=== PATIENT | female | born 1970 | race Two or more races ===

== ENCOUNTER 2023-11-18 06:42 | Emergency (ER) | payer OTHER, SELFPAY ==
--- NOTE | ~2023-11-18 | XR_ITS ---
EXAMINATION: XR FOOT, LEFT CLINICAL INFORMATION: Edema and swelling COMPARISON: None available. TECHNIQUE: AP, lateral, and oblique views of the left foot. FINDINGS: The bones and soft tissues are normal. No fracture. Alignment is anatomic. Joint spaces are maintained. XR/XR foot LT min 3V IMPRESSION: Unremarkable left foot.
--- NOTE | ~2023-11-18 | US_ITS ---
EXAMINATION: US VENOUS ULTRASOUND WITH DOPPLER LOWER EXTREMITY, LEFT CLINICAL INFORMATION: Erythema, swelling and pain COMPARISON: None available. TECHNIQUE: Ultrasound of the deep veins is performed from the hip to the calf with compression sonography and color and pulse Doppler assessment. Spectral analysis with color-flow imaging is performed. FINDINGS: There is normal venous compression and respiratory variation and augmented flow. The visualized common femoral vein, superficial femoral vein, profunda femoral vein, popliteal vein, and the trifurcation region shows no evidence of deep venous thrombosis. There is no significant popliteal fossa cyst. If the patient's symptoms persist, followup ultrasound in 5 days 7 days might be of value to exclude proximal propagation from a non-visualized calf vein. US/US venous duplex LE IMPRESSION: No DVT demonstrated in the left lower extremity.
[2023-11-18 07:09] VITALS: BP 142/67; PULSE 85; RESP 16; TEMP 37.1; O2SAT 98; BMI 21.9
[2023-11-18 07:34] LABS: MANUAL DIFF FLAG NO
[2023-11-18 07:48] LABS: Basophils Percent Auto 0.4 % (0-2); Eosinophils Absolute Auto 0.1 X10*3/uL (0.0-0.4); Eosinophils Percent Auto 1.6 % (0-4); Hematocrit 32.3 % (37.0-47.0); Hemoglobin 10.4 g/dl (12.0-16.0); Imm Gran Abs Auto 0.02 X10*3/uL (0.00-0.03); Imm Gran Pct Auto 0.3 % (0.0-0.4); Lymphocytes Percent Auto 29.3 % (20-40); Mean Corpuscular HGB Conc 32.2 g/dl (31.0-35.0); Mean Corpuscular Hemoglobin 27.7 pg (27.0-33.0); Mean Corpuscular Volume 85.9 fL (80.0-98.0); Mean Platelet Volume 8.9 fL (9.4-12.3); Monocytes Absolute Auto 0.8 X10*3/uL (0.1-1.2); Monocytes Percent Auto 11.7 % (2-11); Neutrophils Absolute Auto 3.8 x10*3/uL (2.0-8.3); Neutrophils Percent Auto 56.7 % (45-73); Platelet Count 376 X10*3/uL (160-400); Red Blood Count 3.76 X10*6/uL (4.20-5.50); Red Cell Distribution Width 14.4 % (11.0-16.0); White Blood Count 6.8 X10*3/uL (4.8-10.8)
[2023-11-18 07:49] LABS: Alanine Aminotransferase 30 U/L (0-31); Albumin Level 3.8 g/dL (3.5-5.0); Alkaline Phosphatase 91 U/L (39-117); Anion Gap 15 (12-20); Aspartate Amino Transferase 26 U/L (5-31); Bilirubin Total 0.5 mg/dL (0.0-1.0); Blood Urea Nitrogen 18 mg/dL (9-16); Calcium 9.2 mg/dL (8.4-10.2); Carbon Dioxide 25 mmol/L (22-29); Chloride 102 mmol/L (96-108); Creatinine Clr Calc Pharmacy 80.3; Estimated Glomerular Filt Rate > 60; Glucose Random 111 mg/dL (60-115); Potassium 3.6 mmol/L (3.3-5.1); Sodium 138 mmol/L (135-145); Total Protein 7.7 g/dL (6.5-8.0)
[2023-11-18 07:54] LABS: B Type Natriuretic Peptide 15 pg/mL (<100)
--- NOTE | 2023-11-18 08:07 | ED.GENADULT ---
HPI - General Adult General Chief complaint: Extremity Problem Stated complaint: swollen foot Time Seen by Provider: 11/18/23 07:49 Source: patient Mode of arrival: ambulatory Limitations: no limitations History of Present Illness HPI narrative: Patient is a 53-year-old female presenting to the emergency department with complaint of left foot pain and swelling which she noted yesterday at work. States pain, swelling and redness has increased since. Denies history of same in the past. Denies known injury/trauma. Denies history of heart failure or DM. Denies calf pain or swelling. MD complaint: left foot pain and swelling Onset (ago): day(s) Location: left and lower extremity Severity: severe Quality: aching Pain Consistency: constant Relieving factors: rest Exacerbating factors: movement Treatments prior to arrival: other (compression socks) Related Data Previous Rx's Medication Instructions Recorded cephalexin 500 mg capsule 500 mg PO QID 7 days #28 caps 11/18/23 doxycycline hyclate 100 mg capsule 100 mg PO BID #14 caps 11/18/23 Allergies Allergy/AdvReac Type Severity Reaction Status Date / Time acetaminophen [From PERCOCET] Allergy Unknown SWELLING Verified 11/18/23 07:13 aspirin [ASPIRIN] Allergy Unknown SHORTNESS Verified 11/18/23 07:13 OF BREATH tramadol [TRAMADOL] Allergy Unknown HIVES Verified 11/18/23 07:13 Review of Systems Review of Systems: As per HPI. Yes all other systems are reviewed and are negative Constitutional: Constitutional: Reports as per HPI [facility] Social History Social History Advance Directives: No Physical Exam ED Vital Signs: Vital Signs - 24 hr 11/18/23 07:09 11/18/23 09:13 Temperature 98.8 F 97.8 F Pulse Rate 85 75 Respiratory Rate 16 20 Blood Pressure 142/67 H 113/62 Pulse Oximetry 98 97 Oxygen Delivery Method Room Air Room Air BMI result Body Mass Index 21.9 Vital signs have been reviewed and appear to be correct. Blood pressure normal. Heart rate normal. Respiratory rate normal. Temperature normal. Oxygen saturation normal. Const General: cooperative, healthy appearing and no acute distress Orientation/consciousness: oriented to person, oriented to place, oriented to time and patient oriented x3 Limitations: no limitations HENMT Head: Yes normocephalic and Yes atraumatic Ears: external ears normal General nose exam: Normal external nose present Face and sinus: Yes face symmetric Mouth: oropharynx normal and moist mucous membranes Throat: Yes uvula midline Eyes Pupils: Equal, round and reactive pupils present Neck Neck: Yes normal visual inspection and Yes supple Resp Effort & Inspection: normal respiratory effort and able to speak in complete sentences Auscultation: clear to auscultation bilaterally Cardio Rate: regular rate Rhythm: regular rhythm Heart sounds: S1 normal heart sound present and S2 normal heart sound present GI Palpation (GI): Soft to palpation and nontender Auscultation: normoactive bowel sounds General: Yes no CVA tenderness Back/Spine/Pelvis Back: no CVA tenderness Skin General skin exam: elasticity normal and turgor normal Neuro General: oriented to person, oriented to place, oriented to time, patient oriented x3, moves all extremities, no focal motor deficits and CN's II-XI intact bilaterally Cranial nerves: Yes Equal, round and reactive pupils present Cognition (Neuro): normal cognition Extrem General: Yes full ROM, Yes no pedal edema and Yes no calf tenderness Left lower extremity: lower leg (negative Homans) Details: normal to inspection and no edema; no tenderness, no palpable cords and no unusual warmth, ankle Details: tenderness Location: other (diffuse), pitting edema Details: pitting and 1+, warmth and other (erythema) and foot Details: normal capillary refill, tenderness Location: of the dorsal foot, toes with normal ROM, warmth Location: diffusely, edema Location: of the dorsal foot and vascular exam Details: dorsalis pedis pulse present and posterior tibial pulse present; no abrasions, no lacerations and no puncture wound Psych Mental Status: mental status grossly normal Affect: normal affect Thought process: Normal thought process present Medications Administered Discontinued Medications Generic Name Dose Route Start Last Admin Trade Name Freq PRN Reason Stop Dose Admin Ketorolac Tromethamine 30 mg 11/18/23 09:38 11/18/23 10:02 Ketorolac Tromethamine 30 Mg/Ml Vial IM 11/18/23 09:39 30 mg ONCE ONE Administration Medical Decision Making Medical Decision Making [facility] [place] Narrative: Patient is a 53-year-old female presenting to the emergency department with complaint of left foot pain and swelling which she noted yesterday at work. On exam patient is awake, A+Ox3, VS WNL, afebrile, normal neurological exam without focal deficits, physical exam findings as above. Given reported symptoms and physical exam findings, initial differential includes cellulitis, dependent edema, DVT. Labs notable for no leukocytosis, mild anemia, no significant electrolyte abnormalities. X-ray notable for no evidence of osteomyelitis. Ultrasound is negative for DVT. My interpretation is in agreement with the radiologist's interpretation. Will treat patient for cellulitis with doxycycline and cephalexin. Instructed patient to keep foot elevated when at rest. Instructed patient to follow-up with primary care provider. Strict return precautions discussed at bedside, and patient advised to monitor leg several times daily for changes. Patient verbalized understanding of and agreement with plan. Differential Diagnosis Differential Diagnoses: The differential diagnosis associated with the presentation includes As per [facility] Admission/Observation Consideration of admission/observation: Escalation of care including admission/observation considered Patient would have been admitted to the hospital had her work up had any findings where hospital admission was appropriate and her clinical presentation warranted hospital admission. Lab Data [facility] [place] Lab Attestation statement: I reviewed the patient's lab results. As per [facility] 11/18/23 07:29 11/18/23 07:29 Labs: Lab Results 11/18/23 Range/Units 07:29 WBC 6.8 (4.8-10.8) X10*3/uL RBC 3.76 L (4.20-5.50) X10*6/uL Hgb 10.4 L (12.0-16.0) g/dl Hct 32.3 L (37.0-47.0) % MCV 85.9 (80.0-98.0) fL MCH 27.7 (27.0-33.0) pg MCHC 32.2 (31.0-35.0) g/dl RDW 14.4 (11.0-16.0) % Plt Count 376 (160-400) X10*3/uL MPV 8.9 L (9.4-12.3) fL Immature Gran % (Auto) 0.3 (0.0-0.4) % Neut % (Auto) 56.7 (45-73) % Lymph % (Auto) 29.3 (20-40) % Boyle % (Auto) 11.7 H (2-11) % Eos % (Auto) 1.6 (0-4) % Baso % (Auto) 0.4 (0-2) % Lymph # (Auto) 2.0 (1.2-4.9) X10*3/uL Boyle # (Auto) 0.8 (0.1-1.2) X10*3/uL Eos # (Auto) 0.1 (0.0-0.4) X10*3/uL Baso # (Auto) 0.0 (0.0-0.2) X10*3/uL Abs Immat Gran (auto) 0.02 (0.00-0.03) X10*3/uL Absolute Neuts (auto) 3.8 (2.0-8.3) x10*3/uL Absolute Nucleated RBC 0.000 (0.0-0.012) X10*3/uL Nucleated RBC % (auto) 0.0 (0.0-0.2) /100WBC Sodium 138 (135-145) mmol/L Potassium 3.6 (3.3-5.1) mmol/L Chloride 102 (96-108) mmol/L Carbon Dioxide 25 (22-29) mmol/L Anion Gap 15 (12-20) BUN 18 H (9-16) mg/dL Creatinine 0.64 (0.5-1.4) mg/dL Estim Creat Clear Calc 80.3 Estimated GFR > 60 Random Glucose 111 (60-115) mg/dL Calcium 9.2 (8.4-10.2) mg/dL Total Bilirubin 0.5 (0.0-1.0) mg/dL AST 26 (5-31) U/L ALT 30 (0-31) U/L Alkaline Phosphatase 91 (39-117) U/L B-Natriuretic Peptide 15 (<100) pg/mL Total Protein 7.7 (6.5-8.0) g/dL Albumin 3.8 (3.5-5.0) g/dL Independent Interpretation I performed an independent interpretation of an: Plain X-Ray and Ultrasound Interpretation: No evidence of osteomyelitis on x-ray No evidence of DVT on ultrasound Radiology Impression Discussion of test interpretation with radiology: I have reviewed the radiologist's reading. Radiologist Impression: XR/XR foot LT min 3V IMPRESSION: Unremarkable left foot. US/US venous duplex LE LT IMPRESSION: No DVT demonstrated in the left lower extremity. External Record Review External record reviewed: Inpatient record, Office record and Outpatient record Prescription Management I considered prescription management with: Antibiotic Discharge Plan Discharge Clinical Impression: Cellulitis Qualifiers: Site of cellulitis of extremity: lower extremity Laterality: left Patient Disposition: Home, Self-Care Instructions: Cephalexin (By mouth), Doxycycline (By mouth), Cellulitis (DC) Additional Instructions: You have been evaluated in the emergency department today for skin infection, also known as cellulitis. If the area of inflammation was outlined today in the ER, please return to the ER immediately if the area of redness increases beyond the border. Please take your prescribed antibiotics as directed for the full course of the medication. You can use Tylenol or ibuprofen per package instructions every 6 hours as needed for pain. If necessary, you can alternate these medications so that you can take one medication every 3 hours. For instance, at noon take ibuprofen, then at 3:00 p.m. take Tylenol, then at 6:00 p.m. take ibuprofen. Please schedule an appointment for follow-up with your primary care physician as soon as possible. Return to the emergency department if you experience recurrent vomiting, fevers greater than 100.4? F, increasing area of redness, warmth around the area, foul-smelling discharge from the area, increased tenderness around the area, or any other concerning symptoms. Prescriptions: New doxycycline hyclate 100 mg capsule 100 mg PO BID Qty: 14 0RF cephalexin 500 mg capsule 500 mg PO QID 7 Days Qty: 28 0RF
[2023-11-18 09:13] VITALS: BP 113/62; PULSE 75; RESP 20; TEMP 36.6; O2SAT 97
[2023-11-18] MEDS: Ketorolac Tromethamine 30 MG/ML VIAL IM (10:02)
[2023-11-18 11:12] VITALS: BP 124/72; PULSE 78; RESP 18; O2SAT 98
== END 2023-11-18 11:16 | disposition home or self-care (01) ==
PROVIDERS: Emergency Provider Emergency Medicine Emergency Medical Services; PCP Internal Medicine
DX: R60.0 Localized edema (principal); M79.672 Pain in left foot; Z79.899 Other long term (current) drug therapy
CPT/HCPCS: 36415; 73630; 80053; 83880; 85025; 93971; 96372; 99284; J1885

== ENCOUNTER 2023-11-23 14:27 | Inpatient (IN) | payer OTHER, SELFPAY ==
[2023-11-23 15:45] VITALS: BP 135/80; PULSE 70; RESP 18; TEMP 36.7; O2SAT 97; BMI 21.9
--- NOTE | 2023-11-23 15:46 | ED_ITS ---
HPI - General Adult General Chief complaint: Extremity Injury, Lower Stated complaint: l leg infection Time Seen by Provider: 11/24/23 01:03 Source: patient Mode of arrival: ambulatory Limitations: no limitations History of Present Illness HPI narrative: Patient with history of IV drug use with right forearm deep abscesses status post I and few weeks ago on oral doxy and Keflex for left leg cellulitis started on 11/17 comes here as still feeling warmth in the left ankle area with pain low-grade fever of 101 at home was seen at [facility] yesterday wanted to get admitted but patient refused to get admitted there and comes here Related Data Previous Rx's Medication Instructions Recorded cephalexin 500 mg capsule 500 mg PO QID 7 days #28 caps 11/18/23 doxycycline hyclate 100 mg capsule 100 mg PO BID #14 caps 11/18/23 Allergies Allergy/AdvReac Type Severity Reaction Status Date / Time acetaminophen [From PERCOCET] Allergy Unknown SWELLING Verified 11/23/23 15:45 aspirin [ASPIRIN] Allergy Unknown SHORTNESS Verified 11/23/23 15:45 OF BREATH tramadol [TRAMADOL] Allergy Unknown HIVES Verified 11/23/23 15:45 Review of Systems 2 Review of Systems: Yes all other systems are reviewed and are negative PMFSH Past Medical History Medical History IVDU (intravenous drug user) Social History Social History Advance Directives: No Advance Directives Information Provided: Yes Physical Exam ED Vital Signs: Vital Signs - 24 hr 11/23/23 15:45 11/23/23 19:00 11/23/23 23:57 Temperature 98.0 F 97.5 F 98.0 F Pulse Rate 70 65 71 Respiratory Rate 18 18 17 Blood Pressure 135/80 147/80 H 133/56 L Pulse Oximetry 97 99 98 Oxygen Delivery Method Room Air Room Air Room Air 11/24/23 00:55 Temperature 97.6 F Pulse Rate 70 Respiratory Rate 16 Blood Pressure 133/56 L Pulse Oximetry 97 Oxygen Delivery Method Room Air BMI result Body Mass Index 21.9 Appearance: Alert. Oriented X3. No acute distress. Eyes: PERRLA, No Nystagmus ENT: Pharynx normal. Oral Mucosa moist Neck: Normal inspection. Neck supple. CVS: Normal heart rate and rhythm. Pulses normal. Respiratory: No respiratory distress. Equal air entry bilateral, no wheezing/rales/rhonchi Abdomen: Soft and nontender. Bowel sounds are present, no mass palpable, no CVA tenderness Skin: Skin warm and dry. Normal skin color. Normal skin turgor. Extremities: No lower extremity edema. No calf tenderness healing I and D wound on the right forearm, left ankle area warmth tender with erythema good range of movement of the ankle joint. Left inguinal lymph node+ Neuro: Oriented X 3. No motor deficit. No sensory deficit.No cerebellar signs , cranial nerves II-XII intact Course Course Course Narrative: RME performed by Savanah De PA-C. Patient is a 53 year old assigned female at presenting to the emergency department with left leg cellulitis. Patient was seen and diagnosed with cellulitis, is on 4 antibiotics, and the infection is worsening. [facility] against medical advice because she states she'd [place] be admitted here, [place] [facility] Detailed physical exam and review of systems are deferred to the mobility architect. Labs ordered. Patient placed back in the waiting room pending room availability and results. Medical Decision Making Medical Decision Making [facility] Narrative: Patient with left leg cellulitis with history of IVDA use with deeper abscess status post I and D on the right forearm failed outpatient antibiotic treatment will admit patient for IV vancomycin pending cultures in the lab case discussed with hospitalist will admit the patient Differential Diagnosis Differential Diagnoses: The differential diagnosis associated with the presentation includes Cellulitis/arthritis Admission/Observation Consideration of admission/observation: Escalation of care including admission/observation considered Consult Healthcare Provider Management of the patient was discussed with: Hospitalist Lab Data [facility] Lab Attestation statement: I reviewed the patient's lab results. 11/24/23 01:38 11/24/23 01:38 Labs: Lab Results 11/24/23 Range/Units 01:38 WBC 4.8 (4.8-10.8) X10*3/uL RBC 3.60 L (4.20-5.50) X10*6/uL Hgb 10.0 L (12.0-16.0) g/dl Hct 31.2 L (37.0-47.0) % MCV 86.7 (80.0-98.0) fL MCH 27.8 (27.0-33.0) pg MCHC 32.1 (31.0-35.0) g/dl RDW 13.9 (11.0-16.0) % Plt Count 481 H D (160-400) X10*3/uL MPV 8.6 L (9.4-12.3) fL Immature Gran % (Auto) 0.2 (0.0-0.4) % Neut % (Auto) 26.5 L (45-73) % Lymph % (Auto) 56.0 H (20-40) % Taney % (Auto) 12.4 H (2-11) % Eos % (Auto) 4.1 H (0-4) % Baso % (Auto) 0.8 (0-2) % Lymph # (Auto) 2.7 (1.2-4.9) X10*3/uL Taney # (Auto) 0.6 (0.1-1.2) X10*3/uL Eos # (Auto) 0.2 (0.0-0.4) X10*3/uL Baso # (Auto) 0.0 (0.0-0.2) X10*3/uL Abs Immat Gran (auto) 0.01 (0.00-0.03) X10*3/uL Absolute Neuts (auto) 1.3 L (2.0-8.3) x10*3/uL Absolute Nucleated RBC 0.000 (0.0-0.012) X10*3/uL Nucleated RBC % (auto) 0.0 (0.0-0.2) /100WBC Sodium 140 (135-145) mmol/L Potassium 3.8 (3.3-5.1) mmol/L Chloride 104 (96-108) mmol/L Carbon Dioxide 26 (22-29) mmol/L Anion Gap 14 (12-20) BUN 12 (9-16) mg/dL Creatinine 0.64 (0.5-1.4) mg/dL Estim Creat Clear Calc 80.3 Estimated GFR > 60 Random Glucose 90 (60-115) mg/dL Lactic Acid 0.7 (0.5-2.0) mmol/L Calcium 8.7 (8.4-10.2) mg/dL Magnesium 1.8 (1.6-2.6) mg/dL Total Bilirubin 0.3 (0.0-1.0) mg/dL AST 27 (5-31) U/L ALT 26 (0-31) U/L Alkaline Phosphatase 105 (39-117) U/L C-Reactive Protein 0.16 (< or = 0.50) mg/dL Total Protein 6.9 (6.5-8.0) g/dL Albumin 3.5 (3.5-5.0) g/dL Discharge Plan Discharge Clinical Impression: Cellulitis Patient Disposition: Admitted As Inpatient
--- NOTE | 2023-11-23 16:10 | MHC.EDTECH ---
This tech called patient for lab work. No answer at this time
[2023-11-23 19:00] VITALS: BP 147/80; PULSE 65; RESP 18; TEMP 36.4; O2SAT 99
--- NOTE | 2023-11-23 19:01 | MHC.EDTECH ---
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
--- NOTE | 2023-11-23 20:22 | MHC.EDTECH ---
PATIENT IS REQUESTING AN ULTRASOUND GUIDED NEEDLE TO DRAW HER LABS ,RN AWARE
[2023-11-23 23:57] VITALS: BP 133/56; PULSE 71; RESP 17; TEMP 36.7; O2SAT 98
[2023-11-24 00:55] VITALS: BP 133/56; PULSE 70; RESP 16; TEMP 36.4; O2SAT 97
--- NOTE | 2023-11-24 01:41 | PC.NURSE ---
IV placed left EJ 20g by MD Oliva
[2023-11-24 01:42] VITALS: BP 133/56; PULSE 70; RESP 16; TEMP 36.4; O2SAT 97
[2023-11-24 01:43] LABS: MANUAL DIFF FLAG NO
--- NOTE | 2023-11-24 01:45 | P.HPHOSP_ITS ---
History of Present Illness Date of Service: 11/24/23 Attending physician on admission: Marissa Ray Chief Complaint: Left leg swelling Ary Schreiber is a 53 years old woman with past medical history significant for IVDU presents to the emergency department complaining of left leg swelling associated with pain and redness. She did not report fevers or chills. She recently had a drainage (fasciotomy?) to her left forearm. She says she has an abscess. This was performed on [facility] a few weeks ago. She was recently seen in this emergency department for left leg cellulitis and was prescribed course of 2 antibiotics: Ceftriaxone and doxycycline (November 18, 2023). She said that the last time she used IV drugs was about a month ago. In the ED, she was found to have stable vital signs. Blood workup showed no leukocytosis. There are no electrolyte imbalances. LFTs are normal. CRP and lactic acid abnormal ED tx: NS 1 L bolus, vancomycin 1 g IV. Review of Systems 2 Review of Systems: Yes all other systems are reviewed and are negative PMFSH Medical History IVDU (intravenous drug user) Social History Advance Directives: No Advance Directives Information Provided: Yes Meds Allergies Allergy/AdvReac Type Severity Reaction Status Date / Time acetaminophen [From PERCOCET] Allergy Unknown SWELLING Verified 11/23/23 15:45 aspirin [ASPIRIN] Allergy Unknown SHORTNESS Verified 11/23/23 15:45 OF BREATH tramadol [TRAMADOL] Allergy Unknown HIVES Verified 11/23/23 15:45 Active Medications: Current Medications Acetaminophen (Acetaminophen 325 Mg Tablet) 650 mg PO Q6H PRN PRN Reason: Pain, Mild (Pain Scale 1-3) Enoxaparin Sodium (Enoxaparin Sodium 40 Mg/0.4 Ml Syringe) 40 mg SUBCUT Q24H BRITTA Sodium Chloride (Ns) 1,000 mls @ 999 mls/hr IV .Q1H1M ONE Stop: 11/24/23 02:41 Vancomycin HCl 1,000 mg/ (Sodium Chloride) 270 mls @ 270 mls/hr IV ONCE ONE Stop: 11/24/23 02:40 Pharmacy Consult (Consult Rx Vancomycin Dosing) 1 each MISCELLANE DAILY PRN PRN Reason: Consult order Sodium Chloride (0.9 % Sodium Chloride Flush 3 Ml Syringe) 3 ml IVFLUSH QSHIFT [facility] Physical Exam 2 Vital Signs and Narrative: Vital Signs: Last Vital Signs Temp 97.6 F 11/24/23 00:55 Pulse 70 11/24/23 00:55 Resp 16 11/24/23 00:55 BP 133/56 L 11/24/23 00:55 Pulse Ox 97 11/24/23 00:55 O2 Del Method Room Air 11/24/23 00:55 BMI result Body Mass Index 21.9 Constitutional - Awake and Alert, No apparent distress. HEENT - Pupils equally round. Normal sclera. Heart - S1S2, RRR, No edema Lungs - Normal lung expansion, Normal respiratory effort, No respiratory distress, CTA bilaterally Gastrointestinal - NT / ND; +BS; No rebound or guarding Extremities - Left forearm (large wound with dark tissue), no discharges. Please see ED notes for picture. Left lower extremity: Erythema, edema and tenderness involving the lower 3rd of the leg, left ankle and foot. Musculoskeletal - Normal ROM Skin - Warm/Dry Neurological - Alert & oriented x3. No focal weakness grossly noted. Normal speech. Psychological - Appropriate affect Results Labs 11/24/23 01:38 11/24/23 01:38 Assessment and Plan (1) Left leg cellulitis: Status: Acute (2) IVDU (intravenous drug user): Status: Acute (3) Open wound of right forearm: Qualifiers: Encounter type: initial encounter Qualified Code(s): S51.801A - Unspecified open wound of right forearm, initial encounter Status: Acute Plan Ary Schreiber is a 53 years old woman with past medical history significant for IVDU admitted with: * Left lower extremity cellulitis (possible hematogenous from recent right forearm abscess). Failed outpatient antibiotic therapy. Left lower extremity venous US (11/24/23) showed no DVT. Admit to hospitalist service. Continue treatment with vancomycin IV. Check blood cultures. * Recent right forearm wound s/p abscess drainage (?fasciotomy). Low suspicion for underlying osteomyelitis. CRP is normal. Wound care consult. DVT prophylaxis: Lovenox subcut Code status: Full Patient will need hospitalization for at least 2 midnights for IV antibiotic therapy for left lower leg cellulitis as she failed oral antibiotic therapy. Quality Stroke Does the patient have a stroke diagnosis?: No VTE Prior VTE?: No VTE Risk Level:: Medical - moderate - high VTE Device Contraindication: Treatment Not Indicated VTE Drug Contraindication: N/A - Med Ordered
[2023-11-24 01:46] LABS: Basophils Percent Auto 0.8 % (0-2); Eosinophils Absolute Auto 0.2 X10*3/uL (0.0-0.4); Eosinophils Percent Auto 4.1 % (0-4); Hematocrit 31.2 % (37.0-47.0); Imm Gran Abs Auto 0.01 X10*3/uL (0.00-0.03); Imm Gran Pct Auto 0.2 % (0.0-0.4); Lymphocytes Absolute Auto 2.7 X10*3/uL (1.2-4.9); Mean Corpuscular HGB Conc 32.1 g/dl (31.0-35.0); Mean Corpuscular Hemoglobin 27.8 pg (27.0-33.0); Mean Corpuscular Volume 86.7 fL (80.0-98.0); Mean Platelet Volume 8.6 fL (9.4-12.3); Monocytes Absolute Auto 0.6 X10*3/uL (0.1-1.2); Monocytes Percent Auto 12.4 % (2-11); Neutrophils Absolute Auto 1.3 x10*3/uL (2.0-8.3); Neutrophils Percent Auto 26.5 % (45-73); Platelet Count 481 X10*3/uL (160-400); Red Cell Distribution Width 13.9 % (11.0-16.0); White Blood Count 4.8 X10*3/uL (4.8-10.8)
[2023-11-24 01:56] LABS: Lactic Acid 0.7 mmol/L (0.5-2.0)
[2023-11-24 02:05] LABS: Alanine Aminotransferase 26 U/L (0-31); Albumin Level 3.5 g/dL (3.5-5.0); Alkaline Phosphatase 105 U/L (39-117); Anion Gap 14 (12-20); Aspartate Amino Transferase 27 U/L (5-31); Bilirubin Total 0.3 mg/dL (0.0-1.0); Blood Urea Nitrogen 12 mg/dL (9-16); C Reactive Protein 0.16 mg/dL (< or = 0.50); Calcium 8.7 mg/dL (8.4-10.2); Carbon Dioxide 26 mmol/L (22-29); Chloride 104 mmol/L (96-108); Creatinine Clr Calc Pharmacy 80.3; Estimated Glomerular Filt Rate > 60; Glucose Random 90 mg/dL (60-115); Magnesium 1.8 mg/dL (1.6-2.6); Potassium 3.8 mmol/L (3.3-5.1); Sodium 140 mmol/L (135-145); Total Protein 6.9 g/dL (6.5-8.0)
[2023-11-24] MEDS: 0.9 % Sodium Chloride 1,000 ML 999 ML IV (02:05)
[2023-11-24] MEDS: vancomycin HCL 1,250 MG in 0.9 % Sodium Chloride 250 ML 166.67 MG IV (02:06)
[2023-11-24] MEDS: ondansetron HCL 4 MG/2 ML VIAL IVPUSH (02:07)
[2023-11-24] MEDS: Morphine Sulfate 4 MG/ML CARTRIDGE IVPUSH (02:10)
[2023-11-24 02:17] LABS: Erythrocyte Sedimentation Rate 29 MM/HR (0-20)
[2023-11-24] MEDS: 0.9 % Sodium Chloride 1,000 ML 100 ML IVCONT ×3 (03:28→23:44)
[2023-11-24 07:26] VITALS: BP 106/64; PULSE 64; RESP 18; O2SAT 96
--- NOTE | 2023-11-24 07:30 | PC.NURSE ---
pt is alert and oriented, skin appropriate for ethnicity, respirations even and unlabored, pt's left foot/leg area slightly swollen/discorded/reddish/ pain 05/17, right arm bandaged up, pt does have a left external jugular and running well, vs stable
[2023-11-24] MEDS: HYDROmorphone HCl 0.5 MG/0.5 ML SYRINGE IVPUSH ×4 (07:34→22:31)
--- NOTE | 2023-11-24 09:10 | PHA.MEDREC ---
Pharmacy Consult ? Medication Reconciliation Pharmacy has completed the medication reconciliation.
[2023-11-24] MEDS: Enoxaparin Sodium 40 MG/0.4 ML SYRINGE SUBCUT (09:38)
--- NOTE | 2023-11-24 12:25 | MHC.CM.PN ---
Addendum entered by Inocencia Penny 11/25/23 09:43: PT REPORTS SHE LIVES ALONE AND IS INDEPENDENT WITH [employer] SHE DENIES USE OF DME OR HOME SERVICES PT DECLINES TO COMPLETE A HCP SHE DOES NOT KNOW THE NAME OF HER PCP DCP: HOME VIA SHUTTLE VS LYFT Original Note: CM ATTEMPTED TO SEE PT WHO WAS SLEEPING ON APPROACH AND DID NOT RESPOND TO SEVERAL ATTEMPTS TO WAKE HER. CM WILL RETURN
--- NOTE | 2023-11-24 12:48 | PC.NURSE ---
Patient has been sleeping since I got here. Asked security to check her belongings because of her known iv drug use. tigered Berta Baldwin found crack pipes and many bags of drugs that were confiscated by security.
--- NOTE | 2023-11-24 14:00 | HO.WOUND ---
Wound Consult: Initial 53yr old?[place] [facility] [place] - See progress notes and H&P for detailed history.? Wound consult placed for Right Forearm wound POA.? Patient was not agreeable to assessment and photo documentation.? She became irritated and irrationally upset while discussing the right forearm wound - she began to curse at me. I clarified she would like to refuse my service and she expressed her desire to not have me assess her wound with foul language. Consult completed - please re-consult inpatient wound nurse if patient becomes agreeable to assessment.
[2023-11-24 15:33] VITALS: BP 145/76; PULSE 69; RESP 19; TEMP 36.4; O2SAT 98
[2023-11-24 15:54] LABS: Appearance Urine Clear; Color Urine Yellow; Glucose Urine UA Negative (Negative); Leukocyte Esterase Urine Negative (Negative); Nitrite Urine Negative (Negative); PH 5.5 (5.0-9.0); Urine Blood Negative (Negative); Urine Ketones Negative (Negative); Urine Protein Negative (Neg-Trace)
[2023-11-24] MEDS: methADONE HCl 20 MG/2 ML ORAL.CONC 30 MG PO (16:40)
--- NOTE | 2023-11-24 17:11 | PM.EVENT ---
Event Note Date of Service: 11/24/23 Event Note: Patient seen examined by hospitalist team this morning, seen and examined again. c/o:left leg swelling associated with pain and redness. Physical exam: Similar to H&P, she refuses to get examined her left arm. Assessment plan: 53 years old woman with past medical history significant for IVDU admitted with: Left lower extremity cellulitis (possible hematogenous from recent right forearm abscess). Failed outpatient antibiotic therapy. Left lower extremity venous US (11/24/23) showed no DVT. plan: Continue treatment with vancomycin IV. Check blood cultures. id EVAL IVDU hx : addiction cinsult -added metadone. Recent right forearm wound s/p abscess drainage (?fasciotomy). Low suspicion for underlying osteomyelitis. CRP is normal. currently refuses exam even with Wound care consult Time Spent With Patient Time: Total time managing care of this patient today ____ minutes.
[2023-11-24] MEDS: vancomycin HCL 1,000 MG in 0.9 % Sodium Chloride 250 ML 270 MG IV (18:30)
--- NOTE | 2023-11-24 18:47 | PHA.PROG ---
Admission Date/Time: November 24, 2023 01:42 Indication: Cellulitis, w/ hx IVDU Weight in k.431 kg Adjusted body weight in K.8 kg [place] body weight in K.56 kg Obesity Dosing Indication % IBW: 134% Serum Creatinine - Last 168 Hours 11/24/23 01:38 Creatinine 0.64 Estimated CrCl and GFR - Last 168 Hours 11/24/23 01:38 Estim Creat Clear Calc 80.3 Estimated GFR > 60 Vancomycin Loading Dose: 1250 mg Current Vancomycin Dosing Regimen: 1000 mg Q12H Date and Time for next Vancomycin Level to be drawn: 11/24 @ 1600 Pharmacist Comments on Vancomycin Plan: Patient received an adequate load dose in the ER 11/23 @ 0206 Maintenance dose vancomycin 1000 mg Q12H is scheduled to start 11/23 @ 1800. Predicted AUC 567 with a trough of 16.9. Level will be drawn prior to 4th dose Pharmacy will monitor renal function daily. Jazmyn Oleary PharmD Vancomycin dosing will take advantage of [employer] as a clinical decision support tool that uses Bayesian modeling to calculate individual patient's pharmacokinetic parameters and forecast the patient's drug concentration time course with the target goal AUC 24 range of 400 - 600 mg/L/hr.
--- NOTE | 2023-11-24 20:54 | HO.ADDICT_ITS ---
History of Present Illness Date of Service: 11/24/23 Chief Complaint: Left lower extremity cellulitis Reason for Consult: OUD/withdrawal Sources of Information: patient interviewed and chart reviewed HPI Narrative: Patient is a 53 year old female currently medically admitted with cellulitis to her leg. She was seen by women nurse earlier in the day and initially denied any current substance use, but did acknowledge history of use--reported it had been one month since last use Later in the day reported to RN withdrawal sx from opiates. Seen by this machine sign writer and women nurse in ED bed 16. Patient laying in bed, eyes closed, but answering questions. Somewhat restless, frequently moving arms and legs. Reporting feeling hot and cold, body aches, and stomach cramps. Reports using a bundle daily. Has been on methadone in the past. Would like to have withdrawal addressed. Review of Systems Constitutional: Reports as per HPI Diagnostics Vital Signs (24Hr): Vital Signs - 24 hr 11/23/23 23:57 11/24/23 00:55 11/24/23 01:42 Temperature 98.0 F 97.6 F 97.6 F Pulse Rate 71 70 70 Respiratory Rate 17 16 16 Blood Pressure 133/56 L 133/56 L 133/56 L Pulse Oximetry 98 97 97 Oxygen Delivery Method Room Air Room Air Room Air 11/24/23 07:26 11/24/23 15:33 Temperature 97.6 F Pulse Rate 64 69 Respiratory Rate 18 19 Blood Pressure 106/64 145/76 H Pulse Oximetry 96 98 Oxygen Delivery Method Room Air Room Air BMI result Body Mass Index 21.9 Labs 11/24/23 01:38 11/24/23 01:38 Labs: Laboratory Results - last 48 hr 11/24/23 11/24/23 01:38 15:45 WBC 4.8 RBC 3.60 L Hgb 10.0 L Hct 31.2 L MCV 86.7 MCH 27.8 MCHC 32.1 RDW 13.9 Plt Count 481 H D MPV 8.6 L Immature Gran % (Auto) 0.2 Neut % (Auto) 26.5 L Lymph % (Auto) 56.0 H [place] % (Auto) 12.4 H Eos % (Auto) 4.1 H Baso % (Auto) 0.8 Lymph # (Auto) 2.7 [place] # (Auto) 0.6 Eos # (Auto) 0.2 Baso # (Auto) 0.0 Abs Immat Gran (auto) 0.01 Absolute Neuts (auto) 1.3 L Absolute Nucleated RBC 0.000 Nucleated RBC % (auto) 0.0 ESR 29 H Sodium 140 Potassium 3.8 Chloride 104 Carbon Dioxide 26 Anion Gap 14 BUN 12 Creatinine 0.64 Estim Creat Clear Calc 80.3 Estimated GFR > 60 Random Glucose 90 Lactic Acid 0.7 Calcium 8.7 Magnesium 1.8 Total Bilirubin 0.3 AST 27 ALT 26 Alkaline Phosphatase 105 C-Reactive Protein 0.16 Total Protein 6.9 Albumin 3.5 Urine Color Yellow Urine Appearance Clear Urine pH 5.5 Ur Specific [place] 1.020 Urine Protein Negative Urine Glucose (UA) Negative Urine Ketones Negative Urine Blood Negative Urine Nitrite Negative Ur Leukocyte Esterase Negative Mental Status Exam Mental Status Exam Patient Appearance: Disheveled Level of Consciousness: Awake, Appropriate and Restless Patient Behavior: Appropriate Medications Medications Current Medications Acetaminophen (Acetaminophen 325 Mg Tablet) 650 mg PO Q6H PRN PRN Reason: Pain, Mild (Pain Scale 1-3) Enoxaparin Sodium (Enoxaparin Sodium 40 Mg/0.4 Ml Syringe) 40 mg SUBCUT Q24H [facility] Last Admin: 11/24/23 09:38 Dose: 40 mg Hydromorphone HCl (Hydromorphone Hcl 0.5 Mg/0.5 Ml Syringe) 0.5 mg IVPUSH Q4H PRN; Protocol PRN Reason: Pain, Severe (Pain Scale 7-10) Last Admin: 11/24/23 18:27 Dose: 0.5 mg Sodium Chloride (Ns) 1,000 mls @ 100 mls/hr IVCONT .Q10H [facility] Stop: 11/25/23 01:59 Last Admin: 11/24/23 14:37 Dose: 100 mls/hr Vancomycin HCl 1,000 mg/ (Sodium Chloride) 270 mls @ 270 mls/hr IV Q12H [facility] Last Admin: 11/24/23 18:30 Dose: 270 mls/hr Pharmacy Consult (Consult Rx Vancomycin Dosing) 1 each MISCELLANE DAILY PRN PRN Reason: Consult order Sodium Chloride (0.9 % Sodium Chloride Flush 3 Ml Syringe) 3 ml IVFLUSH QSHIFT [facility] Last Admin: 11/24/23 16:10 Dose: Not Given Allergies Allergies Allergy/AdvReac Type Severity Reaction Status Date / Time acetaminophen [From PERCOCET] Allergy Unknown SWELLING Verified 11/23/23 15:45 aspirin [ASPIRIN] Allergy Unknown SHORTNESS Verified 11/23/23 15:45 OF BREATH tramadol [TRAMADOL] Allergy Unknown HIVES Verified 11/23/23 15:45 Assessment & Plan Assessment & Plan (1) Opioid use disorder: Status: Acute Code(s): F11.90 - Opioid use, unspecified, uncomplicated Assessment and Plan: * methadone 30mg X1 * AM dose methadone 40mg * HIV and Hepatitis screening * UDS to be collected * will follow up in AM * methadone 10mg X1 PRN if needed to address withdrawal sx Total time managing care of this patient today __35__ minutes. PMFSH Past Medical History Medical History IVDU (intravenous drug user) Social History Social History Unable to assess alcohol history related to: Refusing to respond Patient Tobacco Use Status: Current everyday Tobacco user Smoked in Last 30 Days: Yes Use of substances other than those prescribed or required for medical reasons: Yes Substance Use Type: IV Drugs, Marijuana and Opiates Substance Use Frequency: Chronic Longstanding Advance Directives: No Advance Directives Information Provided: Yes Patient : No
[2023-11-24 21:21] VITALS: BP 169/80; PULSE 55; RESP 18; TEMP 36.6; O2SAT 94
[2023-11-24 21:24] LABS: Amphetamine Screen Urine Not Detected (Not Detect); Barbiturates, Urine Not Detected (Not Detect); Benzodiazepines Screen Urine Not Detected (Not Detect); Cannabinoid Screen Urine Not Detected (Not Detect); Cocaine Screen Urine POSITIVE (Not Detect); Fentanyl, urine POSITIVE (Not Detect); Opiate Screen Urine POSITIVE (Not Detect); Phencyclidine Screen Urine Not Detected (Not Detect)
[2023-11-24 21:39] VITALS: BMI 21.9
[2023-11-25] MEDS: HYDROmorphone HCl 0.5 MG/0.5 ML SYRINGE IVPUSH ×5 (03:21→20:05)
[2023-11-25 03:33] VITALS: PULSE 65; RESP 16; TEMP 36.3; O2SAT 97
[2023-11-25 04:32] VITALS: BP 158/88
[2023-11-25] MEDS: vancomycin HCL 1,000 MG in 0.9 % Sodium Chloride 250 ML 270 MG IV (05:58)
[2023-11-25 08:00] VITALS: PULSE 74; RESP 17; TEMP 36.9; O2SAT 99
[2023-11-25] MEDS: methADONE HCl 20 MG/2 ML ORAL.CONC 40 MG PO (09:40)
--- NOTE | 2023-11-25 11:43 | MHC.RECOVRN ---
Met with pt in 353, along with dormitory counselor, to assess withdrawal after pt received 40 mg methadone. Pt sitting in bed, awake, alert, easily engages in conversation. Pt reports methadone has alleviated most withdrawal symptoms, however, still reports sneezing and hot/cold flashes. Pt reports she had been on methadone months ago through [facility] and would like to return. Pt reports she had been at 110 mg daily and was continuing titration. Pt reports that when on methadone, she had reduced her use. Pt currently reports using heroin/fentanyl, 1.5-5 bundles daily, IV. Denies other substances. Pt reports pain is not being adequately managed with current regimen, reports leg, arm, and back pain. Pt denies other questions or concerns for t/w. Discussed with Stephie Tilley APRN.
--- NOTE | 2023-11-25 11:50 | HO.PM.IMPN ---
Subjective Subjective Date of Service: 11/26/23 Interval History: cellulitis Physical Exam Vital Signs: Vital Signs: Last Vital Signs Temp 98.5 F 11/25/23 08:00 Pulse 74 11/25/23 08:00 Resp 17 11/25/23 08:00 BP 158/88 H 11/25/23 04:32 Pulse Ox 99 11/25/23 08:00 O2 Del Method Room Air 11/25/23 08:00 BMI result Body Mass Index 21.9 Appearance: Alert.? Oriented X3.. cvs: rrr, [id number] , no murmur res: clear to auscultation ,no rhonchii or wheezing abd: no rebound or guarding ,nt, bs present. ext pulses present , no cyanosis ,left lower ext-erythema/swelling -seems to be improving . neuro: axo3 , nonfocal. Objective Data Active Medications Acetaminophen (Acetaminophen 325 Mg Tablet) 650 mg PO Q6H PRN PRN Reason: Pain, Mild (Pain Scale 1-3) Enoxaparin Sodium (Enoxaparin Sodium 40 Mg/0.4 Ml Syringe) 40 mg SUBCUT Q24H [facility] Last Admin: 11/25/23 08:06 Dose: Not Given Documented By: EARNESTINE Non-Admin Reason: Patient Refused Hydromorphone HCl (Hydromorphone Hcl 0.5 Mg/0.5 Ml Syringe) 0.5 mg IVPUSH Q4H PRN; Protocol PRN Reason: Pain, Severe (Pain Scale 7-10) Last Admin: 11/25/23 11:09 Dose: 0.5 mg Documented By: EARNESTINE Vancomycin HCl 1,000 mg/ (Sodium Chloride) 270 mls @ 270 mls/hr IV Q12H [facility] Last Infusion: 11/25/23 07:13 Dose: Infused Documented By: EARNESTINE Methadone HCl (Methadone Hcl 20 Mg/2 Ml Oral.Conc) 40 mg PO DAILY [facility] Last Admin: 11/25/23 09:40 Dose: 40 mg Documented By: EARNESTINE Pharmacy Consult (Consult Rx Vancomycin Dosing) 1 each MISCELLANE DAILY PRN PRN Reason: Consult order Sodium Chloride (0.9 % Sodium Chloride Flush 3 Ml Syringe) 3 ml IVFLUSH QSHIFT [facility] Last Admin: 11/25/23 07:13 Dose: Not Given Documented By: EARNESTINE Non-Admin Reason: IV Running Labs 11/24/23 01:38 11/24/23 01:38 Labs: Laboratory Results - last 24 hr 11/24/23 11/24/23 15:45 21:07 Urine Color Yellow Urine Appearance Clear Urine pH 5.5 Ur Specific [place] 1.020 Urine Protein Negative Urine Glucose (UA) Negative Urine Ketones Negative Urine Blood Negative Urine Nitrite Negative Ur Leukocyte Esterase Negative Urine Opiates Screen POSITIVE H Urine Fentanyl Screen POSITIVE H Ur Barbiturates Screen Not Detected Ur Phencyclidine Scrn Not Detected Ur Amphetamines Screen Not Detected U Benzodiazepines Scrn Not Detected Urine Cocaine Screen POSITIVE H U Marijuana (THC) Screen Not Detected Microbiology Microbiology Results: Microbiology 11/24/23 01:38 Blood Culture - Preliminary Blood - Venous No growth after 24 hours. 11/24/23 01:38 Blood Culture - Preliminary Blood - Venous No growth after 24 hours. Assessment and Plan (1) Left leg cellulitis: Status: Acute Plan 53 years old woman with past medical history significant for IVDU admitted with: Left lower extremity cellulitis (possible hematogenous from recent right forearm abscess). Failed outpatient antibiotic therapy. Left lower extremity venous US (11/24/23) showed no DVT. plan: Continue treatment with vancomycin IV. Check blood cultures. id EVAL IVDU hx : addiction cinsult -added metadone. Recent right forearm wound s/p abscess drainage (?fasciotomy). Low suspicion for underlying osteomyelitis. CRP is normal. currently refuses exam even with Wound care consult ongoing hospitalization need:Left lower extremity cellulitis- need iv antibiotics ,renal function /electrolytes monitering as we all Inefectious expert input Quality Stroke Does the patient have a stroke diagnosis?: No VTE Prior VTE?: No VTE Risk Level:: Medical - moderate - high VTE Device Contraindication: Treatment Not Indicated VTE Drug Contraindication: N/A - Med Ordered
--- NOTE | 2023-11-25 12:45 | HO.WOUND ---
Wound Consult: Initial 53yr old?Female admitted to [facility] on 11/23 - See progress notes and H&P for detailed history.? Wound consult placed for Right Forearm Wound. Chart review reveals IVDU injection site patient reports she had surgical procedure at [facility] approximately a few months ago - she describes I&D but is not able to confirm what she had done. Yesterday the patient refused my consultation today she was pleasantly agreeable to assessment and treatment. ? Unfortunately new photo was not taken today - the attached photo is from admission in the ED. No changes noted to the wound bed at todays assessment see below for details. Right Forearm Etiology: IVDU Injection site / Suspected I&D site from outside facility Measurements: 6cm x 1.5cm x 0.3cm Wound Bed: Adherent black eschar to two separate edges - red pink moist wound bed with adherent yellow slough Drainage / Odor: creamy rivera drainage on dressing no odor noted Edges: ? irregular and nonattached Jami wound: ?Dry firm induration with hyperpigmentation noted no warmth noted - slight hand welling noted Pain: denies at this time Goals of Treatment: ? Moist wound healing and autolytic debridement with Hydrocolloid use Recommendations: 1. Right Forearm - Cleanse with NS moist gauze, pat dry. Apply skin prep to periwound allow to dry. Cover wound bed with Hydrocolloid dressing, change every other day - every 3 days. May cover with netting dressing or dry gauze wrap. Re-consult wound care Nurse for wound deterioration or wound changes.
--- NOTE | 2023-11-25 14:10 | P.PNADD_ITS ---
Subjective Subjective Date of Service: 11/25/23 Reason For Visit: Left lower extremity cellulitis Interim History: Patient seen in follow up methadone 40mg administered with positive effect reported to manager generation higher amount of opioid use. 1-5 bundles reported previously being engaged in OUD treatment with methadone at [facility] within the last few months. Reporting pain in her arm and leg are most bother some to her at this time Review of Systems Acute medical concerns: Yes Medical Review of Systems: unchanged Mental Status Exam Mental Status Exam Patient Behavior: Appropriate Mood Description: Calm Affect Description: Calm Speech Pattern: Clear Diagnostics Vital Signs (24Hr): Vital Signs - 24 hr 11/24/23 15:33 11/24/23 21:21 11/25/23 03:33 Temperature 97.6 F 97.8 F 97.4 F Pulse Rate 69 55 65 Respiratory Rate 19 18 16 Blood Pressure 145/76 H 169/80 H Pulse Oximetry 98 94 97 Oxygen Delivery Method Room Air Room Air Room Air 11/25/23 04:32 11/25/23 08:00 Temperature 98.5 F Pulse Rate 74 Respiratory Rate 17 Blood Pressure 158/88 H Pulse Oximetry 99 Oxygen Delivery Method Room Air BMI result Body Mass Index 21.9 Labs 11/24/23 01:38 11/24/23 01:38 Labs: Laboratory Results - last 48 hr 11/24/23 11/24/23 11/24/23 01:38 15:45 21:07 WBC 4.8 RBC 3.60 L Hgb 10.0 L Hct 31.2 L MCV 86.7 MCH 27.8 MCHC 32.1 RDW 13.9 Plt Count 481 H D MPV 8.6 L Immature Gran % (Auto) 0.2 Neut % (Auto) 26.5 L Lymph % (Auto) 56.0 H [place] % (Auto) 12.4 H Eos % (Auto) 4.1 H Baso % (Auto) 0.8 Lymph # (Auto) 2.7 [place] # (Auto) 0.6 Eos # (Auto) 0.2 Baso # (Auto) 0.0 Abs Immat Gran (auto) 0.01 Absolute Neuts (auto) 1.3 L Absolute Nucleated RBC 0.000 Nucleated RBC % (auto) 0.0 ESR 29 H Sodium 140 Potassium 3.8 Chloride 104 Carbon Dioxide 26 Anion Gap 14 BUN 12 Creatinine 0.64 Estim Creat Clear Calc 80.3 Estimated GFR > 60 Random Glucose 90 Lactic Acid 0.7 Calcium 8.7 Magnesium 1.8 Total Bilirubin 0.3 AST 27 ALT 26 Alkaline Phosphatase 105 C-Reactive Protein 0.16 Total Protein 6.9 Albumin 3.5 Urine Color Yellow Urine Appearance Clear Urine pH 5.5 Ur Specific [place] 1.020 Urine Protein Negative Urine Glucose (UA) Negative Urine Ketones Negative Urine Blood Negative Urine Nitrite Negative Ur Leukocyte Esterase Negative Urine Opiates Screen POSITIVE H Urine Fentanyl Screen POSITIVE H Ur Barbiturates Screen Not Detected Ur Phencyclidine Scrn Not Detected Ur Amphetamines Screen Not Detected U Benzodiazepines Scrn Not Detected Urine Cocaine Screen POSITIVE H U Marijuana (THC) Screen Not Detected Medications Medications Current Medications Acetaminophen (Acetaminophen 325 Mg Tablet) 650 mg PO Q6H PRN PRN Reason: Pain, Mild (Pain Scale 1-3) Enoxaparin Sodium (Enoxaparin Sodium 40 Mg/0.4 Ml Syringe) 40 mg SUBCUT Q24H [facility] Last Admin: 11/25/23 08:06 Dose: Not Given Hydromorphone HCl (Hydromorphone Hcl 0.5 Mg/0.5 Ml Syringe) 0.5 mg IVPUSH Q4H PRN; Protocol PRN Reason: Pain, Severe (Pain Scale 7-10) Last Admin: 11/25/23 11:09 Dose: 0.5 mg Hydromorphone HCl (Hydromorphone Hcl 2 Mg Tablet) 0.5 mg PO Q4H PRN PRN Reason: Pain, Mild (Pain Scale 1-3) Vancomycin HCl 1,000 mg/ (Sodium Chloride) 270 mls @ 270 mls/hr IV Q12H [facility] Last Infusion: 11/25/23 07:13 Dose: Infused Methadone HCl (Methadone Hcl 20 Mg/2 Ml Oral.Conc) 50 mg PO DAILY [facility] Pharmacy Consult (Consult Rx Vancomycin Dosing) 1 each MISCELLANE DAILY PRN PRN Reason: Consult order Sodium Chloride (0.9 % Sodium Chloride Flush 3 Ml Syringe) 3 ml IVFLUSH QSHIFT [facility] Last Admin: 11/25/23 07:13 Dose: Not Given Allergies Allergies Allergy/AdvReac Type Severity Reaction Status Date / Time acetaminophen [From PERCOCET] Allergy Unknown SWELLING Verified 11/23/23 15:45 aspirin [ASPIRIN] Allergy Unknown SHORTNESS Verified 11/23/23 15:45 OF BREATH tramadol [TRAMADOL] Allergy Unknown HIVES Verified 11/23/23 15:45 Assessment & Plan Assessment & Plan (1) Opioid use disorder: Status: Acute Code(s): F11.90 - Opioid use, unspecified, uncomplicated Assessment and Plan: * methadone 50mg tomorrow morning (11/25) * can increase by 10 mg QD as tolerated/requested by patient up to 70mg * continue pain medications in addition to methadone * PRN 5mg methadone ordered as needed * manager generation to follow Total time managing care of this patient today _25___ minutes.
--- NOTE | 2023-11-25 15:36 | MHC.CM.PN ---
pt not ready for dc needs id consult
[2023-11-25 15:42] VITALS: BP 135/71; PULSE 53; RESP 14; TEMP 36.4; O2SAT 98
[2023-11-25] MEDS: 0.9 % Sodium Chloride Flush 3 ML SYRINGE IVFLUSH ×2 (15:57→20:05)
[2023-11-25] MEDS: Doxycycline Monohydrate 100 MG CAPSULE PO (18:43)
[2023-11-25 20:21] VITALS: BP 143/74; PULSE 56; RESP 18; TEMP 36.3; O2SAT 96
[2023-11-26] MEDS: HYDROmorphone HCl 0.5 MG/0.5 ML SYRINGE IVPUSH ×2 (00:01→04:19)
[2023-11-26 03:40] VITALS: BP 170/76; PULSE 63; RESP 20; TEMP 36.2; O2SAT 98
[2023-11-26] MEDS: Doxycycline Monohydrate 100 MG CAPSULE PO (04:19)
[2023-11-26 07:51] VITALS: BP 169/84; PULSE 54; RESP 18; TEMP 36.8; O2SAT 99
[2023-11-26] MEDS: HYDROmorphone HCl 2 MG TABLET 0.5 MG PO (08:11)
[2023-11-26] MEDS: methADONE HCl 20 MG/2 ML ORAL.CONC 50 MG PO (08:12)
[2023-11-26] MEDS: amLODIPine Besylate 2.5 MG TABLET PO (08:12)
[2023-11-26] MEDS: 0.9 % Sodium Chloride Flush 3 ML SYRINGE IVFLUSH (08:13)
--- NOTE | 2023-11-26 10:53 | MHC.RECOVRN ---
Pts referral sent to [facility]. Pt to present to OTP day after discharge with last dose letter. CM aware.
--- NOTE | 2023-11-26 12:18 | PM.DS ---
DS: Providers Provider Date of Service: 11/26/23 Date of admission: 11/24/23 01:42 Date of discharge: 11/26/23 Primary care physician: Zack Hallman MD Consults: 11/24/23 01:55 Consult to Wound Care Routine Reason for consultation: Left forearm wound s/p I&D ? fasciotomy 11/24/23 16:05 Addiction Medicine Routine Consulting Provider: Addiction Covering Reason for consultation: ivdu-heroine use Has provider been notified: No 11/25/23 07:33 Consult to Infectious Diseases Routine Consulting Provider: [facility] Infectious Disease Reason for consultation: ivdu,leg cellulitis Has provider been notified: No Attending physician on discharge: Lloyd Pagan Discharging clinician: Lloyd Pagan DS: Diagnosis Discharge Diagnosis (1) Opioid use disorder: Status: Acute DS: Summary Hospital Course Hospital Course: 53 years old woman with past medical history significant for IVDU presents to the emergency department complaining of left leg swelling associated with pain and redness. She did not report fevers or chills. She recently had a drainage (fasciotomy?) to her left forearm. She says she has an abscess. This was performed on [facility] a few weeks ago. She was recently seen in this emergency department for left leg cellulitis and was prescribed course of 2 antibiotics: Ceftriaxone and doxycycline (November 18, 2023). She said that the last time she used IV drugs was about a month ago. In the ED, she was found to have stable vital signs. Blood workup showed no leukocytosis. There are no electrolyte imbalances. LFTs are normal. CRP and lactic acid abnormal ED tx: NS 1 L bolus, vancomycin 1 g IV. Hospital course: Patient came with a left leg cellulitis-treated with IV antibiotics seems to be improved significantly, blood culture negative@48 hrs .seen by infectious disease -receomended to switch to po doxycycline upon discharge. right arm seen by wound care and recomended:Right Forearm - Cleanse with NS moist gauze, pat dry. Apply skin prep to periwound allow to dry. Cover wound bed with Hydrocolloid dressing, change every other day - every 3 days. May cover with netting dressing or dry gauze wrap. follow up wound care. plan: complete doxycycline 100 mg p.o. b.i.d. for 7 more days. Follow-up with wound care outpatient. follow up with pcp. Above management discussed with the patient in detail length she understand and in agreement with the above plan, time spent 40 minutes and 50% time spent on counseling. Time Attestation Total time managing care of this patient today: 40 mintues. Discharge Coordination Time (in mins): 40min Quality: Safe Use of Opioids Does Pt have an Active Cancer Diagnosis on the Problem List?: No Quality: Stroke Does the patient have a stroke diagnosis?: No Physical Exam Vital Signs: Vital Signs: Last Vital Signs Temp 98.2 F 11/26/23 07:51 Pulse 54 11/26/23 07:51 Resp 18 11/26/23 07:51 BP 169/84 H 11/26/23 07:51 Pulse Ox 99 11/26/23 07:51 O2 Del Method Room Air 11/26/23 07:51 BMI result Body Mass Index 21.9 Appearance: Alert.? Oriented X3.? not in distress.? cvs: rrr, [id number] , no murmur res: clear to auscultation ,no rhonchii or wheezing abd: no rebound or guarding ,nt, bs present. ext pulses present , no cyanosis . left lower ext:erythema and swellin improved ,no flacuatation ,rom full. neuro: axo3 , nonfocal. DS: Data Data Completed and Pending Labs on day of discharge: Preliminary micro results at discharge 11/24/23 01:38 Blood Culture - Preliminary Blood - Venous No growth after 48 hours. 11/24/23 01:38 Blood Culture - Preliminary Blood - Venous No growth after 48 hours. Discharge Plan Discharge Anticipated Discharge Date/Time: 11/26/23 12:07 Patient Disposition: Home, Self-Care Discharge Diagnosis: left leg cellulitis Referrals: Zack Hallman MD [Primary Care Provider] - 1 Week Discharge Medications: New doxycycline monohydrate 100 mg Capsule 100 mg PO Q12H Qty: 14 0RF Discharge Orders: Discharge Order (Routine); Ordered 11/26/23 Ordered By: Lloyd Pagan Diet: Advance to usual diet Activity on Discharge: As tolerated Stand Alone Forms: Patient Portal Discharge page Care Plan Goals: Patient came with a left leg cellulitis-treated with IV antibiotics seems to be improved significantly, blood culture negative@48 hrs .seen by infectious disease -receomended to switch to po doxycycline upon discharge. [facility] for her Methadone dosing( addiction team arranged). right arm seen by wound care and recomended:Right Forearm - Cleanse with NS moist gauze, pat dry. Apply skin prep to periwound allow to dry. Cover wound bed with Hydrocolloid dressing, change every other day - every 3 days. May cover with netting dressing or dry gauze wrap. follow up wound care. Health Concerns: as above. Plan of Treatment: as above. Assessment: as above. Discharge Date/Time: 11/26/23 12:43
--- NOTE | 2023-11-26 12:38 | MHC.CM.PN ---
DP: PT HAS BEEN MEDICALLY CLEARED FOR DC HOME, NO SERVICES. LAST DOSE LETTER GIVEN FOR OP METHADONE DOSING AND DRESSING SUPPLIES SENT WITH PT. [facility] BOOK[facility] FOR 1 PM
== END 2023-11-26 12:43 | disposition home or self-care (01) | DRG 383 ==
LOC: HO.ED 11-24 01:03 → HO.EDOVER 11-24 01:48 → HO.S3 11-24 19:48
PROVIDERS: Nurse Practitioner Psychiatric/Mental Health; Physician Assistant Medical; Admitting Provider Internal Medicine; Emergency Provider Internal Medicine; PCP Internal Medicine; Visit Provider Internal Medicine
DX: L03.116 Cellulitis of left lower limb (principal); F11.23 Opioid dependence with withdrawal; F17.210 Nicotine dependence, cigarettes, uncomplicated; L02.413 Cutaneous abscess of right upper limb; Z71.6 Tobacco abuse counseling
CPT/HCPCS: 36415; 80053; 80307; 81003; 83605; 83735; 85025; 85652; 86140; 87040; 99221; 99285; J1170; J1650; J2270; J2405; J3370; J3371

== ENCOUNTER → 2023-11-24 01:42 | Outpatient (BNV) | payer OTHER, SELFPAY | PROVIDERS: Admitting Provider Internal Medicine; Emergency Provider Internal Medicine; PCP Internal Medicine; Visit Provider Internal Medicine | DX: L03.116 Cellulitis of left lower limb (principal); F11.90 Opioid use, unspecified, uncomplicated | CPT/HCPCS: 99222; 99231; 99239; 99499 ==

== ENCOUNTER → 2023-11-24 01:42 | Outpatient (BNV) | payer OTHER, SELFPAY | PROVIDERS: Admitting Provider Internal Medicine; Emergency Provider Internal Medicine; PCP Internal Medicine; Visit Provider Nurse Practitioner Psychiatric/Mental Health | DX: F11.90 Opioid use, unspecified, uncomplicated (principal) | CPT/HCPCS: 99222; 99231; 99232; G2213 ==